=== PATIENT | female | born 1990 | race African-American/Black ===

== ENCOUNTER 2023-05-09 11:11 | Emergency (ER) | payer MEDICAID, OTHER ==
[~2023-05-09] VITALS: Ht 172.7 cm; Wt 77.0 kg
[2023-05-09 11:35] VITALS: BP 136/79; PULSE 92; RESP 16; TEMP 98.3; O2SAT 97
[2023-05-09] MEDS ORDERED: IBUP-1454 PO (13:12)
[2023-05-09] MEDS ORDERED: CYCL-611 PO (13:12)
[2023-05-09] MEDS ORDERED: DexAMETHasone SOD PHOS 10MG/1ML VIAL INJ IM ONE (13:15)
[2023-05-09] MEDS ORDERED: KETOROLAC TROMETH 60MG/2ML VIAL IM ONE (13:15)
== END 2023-05-09 13:45 | disposition home or self-care (01) ==
LOC: ER 11:11
DX: M62.838 Other muscle spasm (principal); M54.2 Cervicalgia
CPT/HCPCS: 72125; 96372; 99285; J1100; J1885